=== PATIENT | female | born 1975 | race Caucasian/White ===

== ENCOUNTER 2017-02-10 18:42 | Day surgery (SDC) | payer OTHER ==
[~2017-02-10] VITALS: Ht 177.8 cm; Wt 114.5 kg
[2017-02-10 18:48] VITALS: BP 142/93; PULSE 113; TEMP 98.3
[2017-02-10] MEDS ORDERED: PERCOCET 325 MG1 TA2 PO (20:24)
[2017-02-10] MEDS ORDERED: COLACE 100100 MG/CAP PO (20:24)
[2017-02-10] MEDS ORDERED: MOTRIN 600600 MG/TAB PO (20:25)
[2017-02-10 22:15] VITALS: BP 120/72; PULSE 79; TEMP 98.1
[2017-02-10 22:30] VITALS: BP 124/76; PULSE 83
[2017-02-10 22:45] VITALS: BP 121/68; PULSE 74
[2017-02-10 23:00] VITALS: BP 116/63; PULSE 72
[2017-02-10 23:30] VITALS: BP 121/52; PULSE 72
[2017-02-11] VITALS (8 sets, daily range): BP systolic 116–140; BP diastolic 51–74; PULSE 68–84; TEMP 97.9–98.3
[2017-02-11] MEDS ORDERED: PERCOCET 325 MG1 TA3 PO ×2 (12:47→12:55)
[2017-02-11] MEDS ORDERED: COLACE 100100 MG/CAP PO (12:55)
[2017-02-12 04:56] VITALS: BP 110/64; PULSE 69; TEMP 98.2
[2017-02-12 09:09] VITALS: BP 125/76; PULSE 69
== END 2017-02-12 14:45 | disposition home or self-care (01) ==
LOC: SDCO 18:42 → SURG 18:42 → SDCO 02-12 14:45
DX: K35.80 Unspecified acute appendicitis (principal); E66.9 Obesity, unspecified; E03.9 Hypothyroidism, unspecified; F32.9 Major depressive disorder, single episode, unspecified; Z88.8 Allergy status to other drugs, medicaments and biological substances
CPT/HCPCS: OP; A9284; J0171; J0694; J1100; J1170; J1885; J2250; J2405; J2543; J2704; J2710; J3010; J7050; J7120

== ENCOUNTER → 2017-02-10 | Outpatient (CLI) | payer OTHER ==
[~2017-02-10] MED LIST: COLACE 100100 MG/CAP PO; MOTRIN 600600 MG/TAB PO; PERCOCET 325 MG1 TA2 PO; PERCOCET 325 MG1 TA3 PO
== END ==
LOC: COL.RAD 17:02
DX: K35.80 Unspecified acute appendicitis (principal)
CPT/HCPCS: J7050; Q9967

== ENCOUNTER → 2017-11-11 | Outpatient (CLI) | payer OTHER | LOC: MC.RAD 14:20 | DX: Z12.31 Encounter for screening mammogram for malignant neoplasm of breast (principal) ==

== ENCOUNTER → 2020-12-26 | Outpatient (CLI) | payer BC | LOC: MC.RAD 07:06 | DX: Z12.31 Encounter for screening mammogram for malignant neoplasm of breast (principal) ==

== ENCOUNTER → 2022-12-16 | Outpatient (CLI) | payer BC | LOC: CANSCHCLI → MC.RAD 14:26 | DX: Z12.31 Encounter for screening mammogram for malignant neoplasm of breast (principal) ==

== ENCOUNTER 2023-07-25 09:50 | Emergency (ER) | payer BC ==
[~2023-07-25] VITALS: Ht 177.8 cm; Wt 97.7 kg
[2023-07-25 09:58] VITALS: TEMP 99
[2023-07-25] MEDS ORDERED: diphenhydrAMINE 50 MG/ML 1 ML VIAL IV ONE (10:15)
[2023-07-25] MEDS ORDERED: Ketorolac 15 MG/ML VIAL IV ONE (10:15)
[2023-07-25] MEDS ORDERED: NS 1,000 ML IV ONE (10:15)
[2023-07-25 11:10] VITALS: BP 101/86; PULSE 96
== END 2023-07-25 11:20 | disposition home or self-care (01) ==
LOC: COL.ER 09:50
DX: G43.909 Migraine, unspecified, not intractable, without status migrainosus (principal)
CPT/HCPCS: J1200; J1885; J2765; J7030